=== PATIENT | female | born 1990 | race Caucasian/White ===

== ENCOUNTER 2018-09-10 18:48 | Emergency (ER) | payer OTHER ==
[~2018-09-10] VITALS: Ht 162.6 cm; Wt 56.2 kg
[2018-09-10 19:02] VITALS: BP 134/60; PULSE 63; RESP 18; Ht 162.6 cm; Wt 56.2 kg
[2018-09-10] MEDS ORDERED: CEPH-443 PO (19:26)
[2018-09-10] MEDS ORDERED: SULF1TAB31 PO (19:26)
[2018-09-10] MEDS ORDERED: IBUP-1542 PO (19:26)
--- NOTE | 2018-09-10 19:53 | ERD ---
ER Documentation Chief Complaint Chief Complaint poss insect bite right lower leg, c/o redness/pain HPI Patient is a 27-year-old female with ovarian cancer who presents with redness of the right calf. She tried cannabis cream to the area without help. She does not remember being bit by anything but she says that it looks like a spider bite. She feels anxious. She tried ibuprofen. She had subjective fever. She says that her primary doctor is at [facility]. ROS All systems reviewed and are negative except as per history of present illness. Medications Home Meds Active Scripts Ibuprofen* (Motrin*) 600 Mg Tab, 600 MG PO Q6H PRN for PAIN AND OR ELEVATED TEMP, #30 TAB Prov:ZEUS LINDSEY MD 09/10/18 Sulfamethoxazole/Trimethoprim* (Bactrim Ds* Tablet) 1 Each Tablet, 1 TAB PO BID, #14 TAB Prov:ZEUS LINDSEY MD 09/10/18 Cephalexin* (Keflex*) 500 Mg Capsule, 500 MG PO QID for 7 Days, CAP Prov:ZEUS LINDSEY MD 09/10/18 Allergies Allergies: Coded Allergies: No Known Drug Allergies (Verified Allergy, Unknown, 09/10/18) PMhx/Soc Medical and Surgical Hx: pt denies Medical Hx, pt denies Surgical Hx History of Surgery: No Anesthesia Reaction: No Hx Neurological Disorder: No Hx Respiratory Disorders: No Hx Cardiac Disorders: No Hx Psychiatric Problems: No Hx Miscellaneous Medical Probl: Yes (anxiety) Hx Alcohol Use: No Hx Substance Use: No Hx Tobacco Use: No Smoking Status: Never smoker FmHx Family History: No diabetes Physical Exam Vitals Vital Signs Date Temp Pulse Resp B/P (MAP) Pulse Ox O2 O2 Flow FiO2 Time Delivery Rate 09/10/18 97.3 63 18 134/60 98 19:02 (84) Physical Exam Const: No acute distress Head: Atraumatic Eyes: Normal Conjunctiva ENT: Normal External Ears, Nose and Mouth. Neck: Full range of motion. No meningismus. Resp: Clear to auscultation bilaterally Cardio: Regular rate and rhythm, no murmurs Abd: Soft, non tender, non distended. Normal bowel sounds Skin: 2 x 2 centimeter area to the right calf with erythema and induration, no fluctuance Back: No midline or flank tenderness Ext: No cyanosis, or edema Neur: Awake and alert Psych: Normal Mood and Affect Procedures/MDM Patient is a 27-year-old female with history of treated ovarian cancer in remission who presents with redness to the right calf. This has the appearance of a cellulitis and I doubt abscess at this time. The patient will be given Keflex and Bactrim prescriptions. The patient will need to follow-up closely with her primary doctor in 2 days for wound check. At this point I do not believe she requires incision and drainage. The patient will need close follow- up however. I doubt sepsis or serious systemic infection at this time. Departure Diagnosis: Primary Impression: Cellulitis Site of cellulitis: extremity Site of cellulitis of extremity: lower extremity Laterality: right Qualified Codes: L03.115 - Cellulitis of right lower limb Condition: Fair Patient Instructions: Cellulitis Referrals: Your primary doctor Additional Instructions: Call your primary care doctor TOMORROW for an appointment during the next 1-2 days.See the doctor sooner or return here if your condition worsens before your appointment time. ZEUS LINDSEY MD September 10, 2018 19:53
== END 2018-09-10 20:00 | disposition home or self-care (01) ==
LOC: FTE 18:48
DX: L03.115 Cellulitis of right lower limb (principal); Z85.43 Personal history of malignant neoplasm of ovary
CPT/HCPCS: 99283